=== PATIENT | male | born 1985 | race Two or more races ===

== ENCOUNTER 2018-10-17 07:38 | Emergency (ER) | payer SELFPAY ==
[~2018-10-17] VITALS: Ht 162.6 cm; Wt 74.2 kg
[2018-10-17] MEDS ORDERED: SODIUM CHLORIDE FLUSH 10ML SYR IVF ONE (08:00)
[2018-10-17] MEDS ORDERED: KETOROLAC 30 MG/1 ML IVPush ONE (08:00)
[2018-10-17] MEDS ORDERED: SODIUM CHLORIDE 0.9% 1,000ML IVBOLUS ONE (08:00)
[2018-10-17] MEDS ORDERED: ONDANSETRON 2MG/ML, 2ML IVPush ONE (08:00)
[2018-10-17] MEDS ORDERED: ACETAMINOPHEN 500 MG TABLET PO ONE (08:00)
[2018-10-17 08:19] LABS: BASOPHILS # (AUTO) 0.02 x10^3/uL (0-0.1); BASOPHILS % (AUTO) 0 % (0-1); EOSINOPHILS % (AUTO) 0 % (1-7); LYMPHOCYTES # (AUTO) 0.96 x10^3/uL (1-3.4); LYMPHOCYTES % (AUTO) 16 % (22-44); MD NO; MEAN CORPUSCULAR HEMOGLOBIN 29.5 pg (27.5-34.5); MEAN CORPUSCULAR HGB CONC 33.6 g/dL (33.2-36.2); MONOCYTES # (AUTO) 0.46 x10^3/uL (0.2-0.8); MONOCYTES % (AUTO) 8 % (2-9); NEUTROPHILS # (AUTO) 4.57 x10^3/uL (1.8-6.8); NEUTROPHILS % (AUTO) 76 % (42-75); PLATELET COUNT 300 x10^3/uL (130-400); RED BLOOD COUNT 5.66 x10^6/uL (4.38-5.82); RED CELL DISTRIBUTION WIDTH 12.9 % (9.4-14.8)
[2018-10-17] MEDS ORDERED: KETOROLAC 30 MG/1 ML ONE (08:23)
[2018-10-17] MEDS ORDERED: ONDANSETRON 2MG/ML, 2ML ONE (08:23)
[2018-10-17] MEDS ORDERED: ACETAMINOPHEN 500 MG TABLET ONE (08:24)
[2018-10-17 08:29] LABS: ALBUMIN 3.7 g/dL (3.4-5.0); ANION GAP 11 mmol/L (5-15); CALCIUM 9.4 mg/dL (8.5-10.1); CHLORIDE 103 mmol/L (98-107)
[2018-10-17 08:40] LABS: RAPID INFLUENZA A Negative (Negative); RAPID INFLUENZA B Negative (Negative)
[2018-10-17 08:44] VITALS: BP 109/68
--- NOTE | 2018-10-17 08:45 | NUR ---
pt resting in [place], iv established and pt medicated per mar. ivf running. friend at bedside. pt cannot give urine specimen at this time, will try after rad. awaiting rad. call light within reach
--- NOTE | 2018-10-17 09:35 | NUR ---
REPORT TO FANNIE JACOBSEN
[2018-10-17] MEDS ORDERED: HYDROcodone/APAP 5/325 TABLET ONE (09:57)
[2018-10-17] MEDS ORDERED: HYDROcodone/APAP 5/325 TABLET PO ONE (10:00)
== END 2018-10-17 10:18 | disposition home or self-care (01) ==
LOC: ED 10:12
DX: J03.00 Acute streptococcal tonsillitis, unspecified (principal); R11.2 Nausea with vomiting, unspecified
CPT/HCPCS: 36415; 71046; 80048; 82040; 83605; 84145; 85025; 87040; 87400; 96361; 96374; 96375; 99284; J1885; J2405; J7030